=== PATIENT | male | born 1995 | race Caucasian/White ===

== ENCOUNTER 2017-08-16 14:24 | Emergency (ER) | payer SELFPAY ==
[~2017-08-16] VITALS: Ht 182.9 cm; Wt 61.7 kg
[~2017-08-16 14:24] MED LIST: AMOX500T PO
[2017-08-16 14:36] VITALS: BP 130/70; PULSE 81; RESP 16; TEMP 98; O2SAT 98
[2017-08-16 15:02] LABS: BLOOD, URINE NEG (NEG); GLUCOSE,URINE NEG (NEG); KETONE, URINE NEG (NEG); NITRITE,URINE NEG (NEG)
[2017-08-16 15:08] LABS: COMMENT (UR) CULTURE INDICATED; CULTURE IF INDICATED CULTURE INDICATED; METHOD OF COLLECTION CLEAN CATCH; URINE COLOR YELLOW (YELLW/STRAW)
--- NOTE | 2017-08-16 15:37 | PD ---
HPI Chief Complaint: Complaint Time Seen by Provider: 15:13 Travel History International Travel<30 days: No Contact w/Intl Traveler<30days: No Traveled to known affect area: No History of Present Illness HPI 22-year-old male here for dysuria and frequency 2 weeks. He denies fever or chills. He is sexually active and not using protection. He denies abdominal pain, testicular pain, penile discharge or lesions. No previous UTIs. Symptom severity is moderate. No alleviating factors. PFSH Past Medical History Medical History: Denies Significant Hx Diminished Hearing: No Immunizations Current: Yes (SHOTS UTD) Tetanus Vaccination: Unknown Past Surgical History Surgical History: No Previous Surgery Social History Alcohol Use: Yes (RARE) Tobacco Use: Yes (1/2 PPD) Substance Use: No Allergies-Medications (Allergen,Severity, Reaction): Coded Allergies: No Known Allergies (Verified Adverse Reaction, Unknown, 08/16/17) Reported Meds & Prescriptions Reported Meds & Active Scripts Active No Active Prescriptions or Reported Medications Review of Systems Except as stated in HPI: all other systems reviewed are Neg General / Constitutional: No: Fever Physical Exam Narrative GENERAL: Alert well-appearing young male SKIN: Warm and dry. HEAD: Normocephalic. EYES: No scleral icterus. No injection or drainage. NECK: Supple, trachea midline. No JVD or lymphadenopathy. CARDIOVASCULAR: Regular rate and rhythm without murmurs, gallops, or rubs. RESPIRATORY: Breath sounds equal bilaterally. No accessory muscle use. GASTROINTESTINAL: Abdomen soft, non-tender, nondistended. BACK: Nontender without obvious deformity. No CVA tenderness. Data Data Last Documented VS Vital Signs Date Time Temp Pulse Resp B/P (MAP) Pulse Ox O2 Delivery O2 Flow Rate FiO2 08/16/17 14:36 98.0 81 16 130/70 (90) 98 Orders Orders Urinalysis - C+S If Indicated (08/16/17 14:30) Urine Culture (08/16/17 14:40) Gc And Chlamydia Pcr (08/16/17 15:31) Azithromycin Powd Pack (Zithromax Powd P (08/16/17 15:45) Ceftriaxone Inj (Rocephin Inj) (08/16/17 15:45) Lidocaine 1% Inj (50 Ml) (Xylocaine 1% I (08/16/17 15:45) Labs Laboratory Tests Test 08/16/17 14:40 Urine Collection Type CLEAN CATCH Urine Color YELLOW Urine Turbidity CLEAR Urine pH 8.0 Urine Specific [place] 1.025 Urine Protein NEG mg/dL Urine Glucose (UA) NEG mg/dL Urine Ketones NEG mg/dL Urine Occult Blood NEG Urine Nitrite NEG Urine Bilirubin NEG Urine Leukocyte Esterase TRACE Urine WBC 9-14 /hpf Urine WBC Clumps MOD Microscopic Urinalysis Comment CULTURE INDICATED MDM Medical Decision Making Medical Screen Exam Complete: Yes Emergency Medical Condition: Yes Differential Diagnosis UTI, urethritis, pyelonephritis Narrative Course 22-year-old male here with dysuria and frequency 2 weeks. He denies penile discharge, penile pain, testicular pain. Patient's urine is positive for WBCs and bacteria. Considering the patient is sexually active not using protection urethra radius is a concern. Patient be treated empirically for GC chlamydia as well as UTI. Diagnosis Primary Impression: UTI (urinary tract infection) Qualified Codes: N30.00 - Acute cystitis without hematuria Additional Impression: Tonsillitis with exudate Referrals: Primary Care Physician Scripts Sulfamethoxazole-Trimethoprim (Bactrim DS) 800-160 Mg Tab 1 TAB PO BID for Infection, #6 TAB 0 Refills Prov: Yany Nina 08/16/17 Disposition: 01 DISCHARGE HOME Condition: Stable Yany Nina Aug 16, 2017 15:37
[2017-08-16] MEDS ORDERED: BACT800T5 PO (15:41)
[2017-08-16] MEDS ORDERED: cefTRIAXone 250 MG VIAL IM ONE (15:45)
[2017-08-16] MEDS ORDERED: LIDOCAINE HCL 1% 50 ML VIAL IM ONE (15:45)
[2017-08-16] MEDS ORDERED: AZITHROMYCIN PWD FOR SUSP 1 GM PACKET PO ONE (15:45)
[2017-08-17 00:28] LABS: CHLAMYDIA PCR DETECTED (NOT DETECT); NEISSERIA PCR NOT DETECTED (NOT DETECT)
== END 2017-08-16 16:15 | disposition home or self-care (01) ==
LOC: PHEFT 14:24
DX: N30.00 Acute cystitis without hematuria (principal); A74.9 Chlamydial infection, unspecified; F17.200 Nicotine dependence, unspecified, uncomplicated; Z72.89 Other problems related to lifestyle
CPT/HCPCS: 81001; 87086; 87491; 87591; 96372; 99284; J0696

== ENCOUNTER 2017-09-11 17:39 | Emergency (ER) | payer SELFPAY ==
[~2017-09-11] VITALS: Ht 182.9 cm; Wt 64.0 kg
[~2017-09-11 17:39] MED LIST changes: -AMOX500T PO; +BACT800T5 PO
[2017-09-11 17:46] VITALS: BP 124/74; PULSE 89; RESP 16; TEMP 97.3; O2SAT 98
[2017-09-11 18:12] LABS: BILIRUBIN, URINE NEG (NEG); BLOOD, URINE NEG (NEG); GLUCOSE,URINE NEG (NEG); KETONE, URINE NEG (NEG); NITRITE,URINE NEG (NEG); URINE LEUKOCYTE ESTERASE NEG (NEG)
[2017-09-11 18:18] LABS: URINE COLOR YELLOW (YELLW/STRAW)
[2017-09-11 18:19] LABS: SQUAMOUS EPITHELIAL CELL URINE 0-5 /hpf (0-5); WBC, URINE 0-2 /hpf (0-5)
[2017-09-11] MEDS ORDERED: AZITHROMYCIN PWD FOR SUSP 1 GM PACKET PO ONE (18:30)
[2017-09-11] MEDS ORDERED: LIDOCAINE HCL 1% 50 ML VIAL XX ONE (18:30)
--- NOTE | 2017-09-11 18:36 | PD ---
HPI Chief Complaint: Complaint Time Seen by Provider: 18:05 Travel History International Travel<30 days: No Contact w/Intl Traveler<30days: No Traveled to known affect area: No History of Present Illness HPI 22-year-old male presents to the ED for evaluation of 3 day history of urinary frequency, urinary urgency, 2/10 mild dysuria and mild intermittent nausea. Gradual onset. No alleviating or exacerbating factors reported. Patient denies fever, chills, abdominal pain, nausea, vomiting, penile discharge, testicular pain, unprotected sex. He states that he was treated for UTI, gonorrhea and Chlamydia in early August. He states that his symptoms resolved in the interim. He did not follow-up with the Health Department for test of cure. [facility] Past Medical History Medical History: Denies Significant Hx Diminished Hearing: No Immunizations Current: Yes (SHOTS UTD) Past Surgical History Tonsillectomy: Yes Social History Alcohol Use: Yes (RARE) Tobacco Use: Yes (1/2 PPD) Substance Use: No Allergies-Medications (Allergen,Severity, Reaction): Coded Allergies: No Known Allergies (Verified Adverse Reaction, Unknown, 09/11/17) Reported Meds & Prescriptions Reported Meds & Active Scripts Active No Active Prescriptions or Reported Medications Review of Systems Except as stated in HPI: all other systems reviewed are Neg Physical Exam Narrative GENERAL: Well-nourished, well-developed white male in no acute distress. SKIN: Focused skin assessment warm/dry. HEAD: Normocephalic. EYES: No scleral icterus. No injection or drainage. NECK: Supple, trachea midline. No JVD or lymphadenopathy. CARDIOVASCULAR: Regular rate and rhythm without murmurs, gallops, or rubs. RESPIRATORY: Breath sounds clear and equal bilaterally. No accessory muscle use. GASTROINTESTINAL: Abdomen soft, non-tender, nondistended. Active bowel sounds. MUSCULOSKELETAL: No cyanosis, or edema. BACK: Nontender without obvious deformity. No CVA tenderness. Data Data Last Documented VS Vital Signs Date Time Temp Pulse Resp B/P (MAP) Pulse Ox O2 Delivery O2 Flow Rate FiO2 09/11/17 17:46 97.3 89 16 124/74 (91) 98 Orders Orders Urinalysis - C+S If Indicated (09/11/17 17:48) Azithromycin Powd Pack (Zithromax Powd P (09/11/17 18:30) Ceftriaxone Inj (Rocephin Inj) (09/11/17 18:30) Lidocaine 1% Inj (50 Ml) (Xylocaine 1% I (09/11/17 18:30) Labs Laboratory Tests Test 09/11/17 17:50 Urine Color YELLOW Urine Turbidity CLEAR Urine pH 8.0 Urine Specific [place] 1.020 Urine Protein NEG mg/dL Urine Glucose (UA) NEG mg/dL Urine Ketones NEG mg/dL Urine Occult Blood NEG Urine Nitrite NEG Urine Bilirubin NEG Urine Leukocyte Esterase NEG Urine WBC 0-2 /hpf Urine Squamous Epithelial Cells 0-5 /hpf Microscopic Urinalysis Comment CULT NOT INDICATED MDM Medical Decision Making Medical Screen Exam Complete: Yes Emergency Medical Condition: Yes Differential Diagnosis UTI versus gonorrhea versus chlamydia versus other Narrative Course 22-year-old male presents to the ED for evaluation of 3 day history of urinary frequency, urinary urgency, 2/10 mild dysuria and mild intermittent nausea. Gradual onset. No alleviating or exacerbating factors reported. Patient denies fever, chills, abdominal pain, nausea, vomiting, back pain, penile discharge, testicular pain, unprotected sex. He states that he was treated for UTI, gonorrhea and Chlamydia in early August. He did not follow-up with the Health Department for test of cure. Vitals reviewed. Physical exam reveals a nontoxic-appearing white male in no acute distress. Abdominal exam unremarkable. No culture indicated of the UA. I reviewed the patient's record and at last visit he tested positive for chlamydia. Since he did not follow-up for test of cure it is likely that the chlamydial infection still present. Patient agrees to empiric treatment for gonorrhea and chlamydia. He is instructed to follow-up with the health Department in one week for test of cure in full battery of STD testing. We discussed reasons to return to the ED. He was provided with a [facility] information to establish primary care. He indicated understanding of the instructions. He is stable and discharged home. Diagnosis Primary Impression: Dysuria Referrals: [facility]. Patient Instructions: Dysuria (ED), General Instructions Additional Instructions: Rest, hydrate. Abstain from sex until test of cure is proven. All sexual partners should be notified and tested/treated. Follow-up with health Department in one week for test of cure. Follow-up with the [facility] to establish primary care. Return to the ED for worsening symptoms or any urgent or emergent medical condition. Scripts No Active Prescriptions or Reported Meds Disposition: 01 DISCHARGE HOME Condition: Stable Rosy Pool Sep 11, 2017 18:36
[2017-09-11] MEDS ORDERED: LIDOCAINE HCL 1% 20 ML VIAL OTHER ONE (19:00)
== END 2017-09-11 19:35 | disposition home or self-care (01) ==
LOC: PHEFT 17:39
DX: R30.0 Dysuria (principal); R11.0 Nausea; R35.0 Frequency of micturition; R39.15 Urgency of urination; F17.200 Nicotine dependence, unspecified, uncomplicated
CPT/HCPCS: 81001; 96372; 99284; J0696